=== PATIENT | male | born 1995 ===

== ENCOUNTER 2017-01-20 20:12 | Emergency (ER) | payer OTHER ==
[~2017-01-20] VITALS: Ht 175.3 cm; Wt 74.3 kg
[2017-01-20 20:16] VITALS: TEMP 37.4; Ht 175.3 cm; Wt 74.3 kg
[2017-01-20] MEDS ORDERED: DIPH1TAB87 PO (20:45)
[2017-01-20] MEDS ORDERED: SODIUM CHLORIDE 0.9% 1000ML 1,000 ML IV STA (20:49)
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
--- NOTE | 2017-01-20 21:09 | DIAGNOSTIC IMAGING REPORT ---
CHEST ONE VIEW PORTABLE CLINICAL HISTORY: Altered mental status. Weakness. COMPARISON STUDY: No previous studies for comparison. FINDINGS: Lung volumes are normal. There is no pneumothorax or pleural effusion. Pulmonary vascularity is normal. Cardiac size is normal. Mediastinal contours are normal. No airspace opacities are identified. IMPRESSION: No acute cardiopulmonary findings. Electronically signed by: Willian Frances M.D. 01/20/2017 9:07 PM Dictated Date/Time: 01/20/2017 9:07 PM
[2017-01-20 21:18] LABS: BASO % 0.2 %; BASO ABS # 0.02 K/uL (0-0.2); COMPLETE YES; EOS % 0.5 %; HEMATOCRIT 44.8 % (42-52); IG% 0.1 %; LYMPH % 30.1 %; LYMPH ABS # 2.43 K/uL (1.2-3.4); MEAN CELL VOLUME 92.6 fL (80-100); MEAN CORPUSCULAR HEMOGLOBIN 32.4 pg (25-34); MEAN PLATELET VOLUME 10.3 fL (7.4-10.4); MONO % 7.1 %; PLATELET COUNT 245 K/uL (130-400); RED BLOOD COUNT 4.84 M/uL (4.7-6.1); WHITE BLOOD COUNT 8.07 K/uL (4.8-10.8)
[2017-01-20 21:34] LABS: BUN/CREATININE RATIO 12.9 (10-20); CREATININE 1.1 mg/dl (0.60-1.40); POTASSIUM 4.4 mmol/L (3.5-5.1)
[2017-01-20 21:44] LABS: ALB/GLOB RATIO 1.5 (0.9-2); THYROID STIMULATING HORMONE 0.823 uIu/ml (0.300-4.500)
--- NOTE | 2017-01-20 21:45 | DIAGNOSTIC IMAGING REPORT ---
CT OF THE HEAD WITHOUT CONTRAST CLINICAL HISTORY: Altered mental status. Weakness. COMPARISON STUDY: No previous studies for comparison. CT DOSE: 767.83 mGy.cm TECHNIQUE: Helical axial images of the head were obtained without IV contrast. Automated exposure control was utilized for the study. FINDINGS: No acute intracranial hemorrhage, midline shift or mass effect is present. Ventricular system is normal. Basilar cisterns are patent. There are no extra axial collections. Gtz-white differentiation is maintained. There are no findings to suggest acute dural sinus thrombosis or acute territorial infarct. There is no calvarial fracture. Visualized portions of the sinuses and the mastoid air cells are clear. IMPRESSION: No acute intracranial findings. Electronically signed by: Willian Frances M.D. 01/20/2017 9:44 PM Dictated Date/Time: 01/20/2017 9:41 PM
[2017-01-20 21:55] LABS: CALCIUM 9.8 mg/dl (8.5-10.1)
[2017-01-20 22:24] VITALS: BP 138/79; PULSE 75; O2SAT 100
== END 2017-01-20 22:26 | disposition home or self-care (01) ==
LOC: C.EDB 20:14 → C.EDC 22:26
DX: Z04.71 Encounter for examination and observation following alleged adult physical abuse (principal); R41.0 Disorientation, unspecified